=== PATIENT | male | born 1985 | race Caucasian/White ===

== ENCOUNTER 2019-12-15 23:13 | Emergency (ER) | payer MEDICAID ==
[~2019-12-15] VITALS: Ht 160 cm; Wt 63.5 kg
[2019-12-15 23:20] VITALS: BP_SYST 131
[2019-12-16 00:20] LABS: BASOPHILS % (AUTO) 0.5 % (0.0-2.0); EOSINOPHILS # (AUTO) 0.5 K/uL (0.0-0.4); EOSINOPHILS % (AUTO) 4.7 % (0.0-4.0); HEMOGLOBIN 13.4 g/dL (14.0-18.0); LYMPHOCYTES % (AUTO) 21.2 % (20.5-51.5); MEAN CORPUSCULAR HEMOGLOBIN 31 pg (27-31); MEAN CORPUSCULAR HGB CONC 34 % (32-36); MEAN CORPUSCULAR VOLUME 92 fL (79.0-98.0); MONOCYTES # (AUTO) 0.9 K/uL (0.0-1.0); MONOCYTES % (AUTO) 9.5 % (1.7-9.3); NEUTROPHILS # (AUTO) 6.1 K/uL (1.8-7.7); NEUTROPHILS % (AUTO) 64.1 % (40.0-70.0); PLATELET COUNT (AUTO) 256 K/uL (130-430); RED BLOOD CELL COUNT(AUTO) 4.33 MIL/uL (4.2-6.2); RED CELL DISTRIBUTION WIDTH 14.9 % (9.0-15.0); WHITE BLOOD COUNT (AUTO) 9.6 K/uL (4.8-10.8)
[2019-12-16 00:30] LABS: BILIRUBIN,URINE NEGATIVE (NEGATIVE); CLARITY/URINE CLEAR (CLEAR); COLOR,URINE YELLOW (YELLOW); GLUCOSE,URINE NEGATIVE (NEGATIVE); KETONES,URINE NEGATIVE (NEGATIVE); LEUKOCYTE ESTERASE ,URINE NEGATIVE (NEGATIVE); NITRITE, URINE NEGATIVE (NEGATIVE); PH,URINE 5.5 (5.0-8.0); PROTEIN URINE TRACE (NEGATIVE); UROBILINOGEN,URINE 0.2 (0.2-1.0)
[2019-12-16 00:36] LABS: BLOOD, URINE TRACE (NEGATIVE)
[2019-12-16 00:43] LABS: WBC,URINE >100 /HPF (0-3)
[2019-12-16 00:44] LABS: BACTERIA,URINE FEW /HPF (None Seen); CALCIUM OXALATE CRYSTALS,UR 0-10 /HPF (None Seen); RBC,URINE 20-50 /HPF (0-3)
[2019-12-16] MEDS ORDERED: AZITHROMYCIN 250 MG TABLET PO ONE (01:00)
[2019-12-16 02:00] VITALS: BP_SYST 122
== END 2019-12-16 02:00 | disposition home or self-care (01) ==
LOC: SED 23:13
DX: N34.2 Other urethritis (principal); F12.90 Cannabis use, unspecified, uncomplicated; F15.90 Other stimulant use, unspecified, uncomplicated; F14.90 Cocaine use, unspecified, uncomplicated; F11.90 Opioid use, unspecified, uncomplicated
CPT/HCPCS: 36415; 81000; 85025; 87086; 87491; 87591; 99283; Q0144

== ENCOUNTER 2019-12-24 23:59 | Emergency (ER) | payer MEDICAID ==
[~2019-12-24] VITALS: Ht 160 cm; Wt 71.7 kg
[2019-12-25 00:05] VITALS: BP_SYST 122
[2019-12-25] MEDS ORDERED: cefTRIAXone 500 MG in LIDOCAINE 1%, 20 ML MDV 1 ML IM ONE (00:15)
[2019-12-25 00:30] VITALS: BP_SYST 122
== END 2019-12-25 00:30 | disposition home or self-care (01) ==
LOC: SED 23:59
DX: A54.9 Gonococcal infection, unspecified (principal)
CPT/HCPCS: 96372; 99283; J0696